=== PATIENT | female | born 1990 | race Caucasian/White ===

== ENCOUNTER 2016-10-26 05:06 | Emergency (ER) | payer MEDICAID, OTHER, SELFPAY ==
[~2016-10-26] VITALS: Ht 170.2 cm; Wt 75.0 kg
[2016-10-26] MEDS ORDERED: ONDANSETRON 4 MG ORAL DISINTEGRATING TAB (S0181) PO ONE (06:15)
[2016-10-26] MEDS ORDERED: GI COCKTAIL 50ML BTL(HYOSCYAMINE/MAALOX/LIDOCAINE VISCOUS)(1:3:1) PO ONE (06:15)
[2016-10-26] MEDS ORDERED: PRIL20TA2 PO (06:22)
[2016-10-26] MEDS ORDERED: ZOFR4TAB3 PO (06:22)
[2016-10-26 06:46] VITALS: BP 116/85
== END 2016-10-26 06:51 | disposition home or self-care (01) ==
LOC: M ED 05:06
DX: K29.20 Alcoholic gastritis without bleeding (principal); K21.9 Gastro-esophageal reflux disease without esophagitis; Z72.0 Tobacco use